=== PATIENT | female | born 1980 | race Caucasian/White ===

== ENCOUNTER 2018-12-11 06:56 | Outpatient (CLI) | payer OTHER ==
--- NOTE | 2018-12-11 08:45 | ULT ---
GALLBLADDER ULTRASOUND: INDICATIONS: Elevated liver enzymes. FINDINGS: Images of the gallbladder reveal numerous echogenic gallstones with posterior shadowing. The gallbla dder wall is poorly evaluated due to the contracted gallbladder filled with stones. I cannot exclude mild gallbladder wall thickening. The technologist describes a negative Kowalski sign. The common bile duct is normal in caliber, measured at 3 to 4 mm. The liver is mildly prominent in size, measuring up to 21 cm. Mild increased echogenicity may repres ent mild fatty infiltration. The pancreas is partially imaged and appears unremarkable. The right kidney is imaged. There is a 1 cm cyst, inferior pole, right kidney. IMPRESSION: 1. Cholelithiasis. 2. Mild hepatomegaly with evidence of hepatic steatosis. POS: H
== END 2018-12-11 06:57 | disposition home or self-care (01) ==
LOC: BICULT 06:56
PROVIDERS: ATTEND Family Medicine
DX: R74.8 Abnormal levels of other serum enzymes (principal); K80.20 Calculus of gallbladder without cholecystitis without obstruction; R16.0 Hepatomegaly, not elsewhere classified; K76.0 Fatty (change of) liver, not elsewhere classified
CPT/HCPCS: 76705

== ENCOUNTER 2019-02-02 08:08 | Outpatient (CLI) | payer OTHER ==
[2019-02-02 10:21] LABS: #Basophils 0.1 thou/uL (0.0-0.2); #Eosinphils 0.3 thou/uL (0.0-0.7); #Lymphocytes 1.8 thou/uL (1.20-3.40); #Monocytes 0.4 thou/uL (0.11-0.59); #Neutrophils 5.2 thou/uL (1.40-6.50); %Basophils 0.9 % (0.0-1.0); %Eosinophils 3.3 % (0.0-10.0); %Lymphocytes 23.6 % (21.0-51.0); %Monocytes 4.7 % (0.0-10.0); %Neutrophils 67.5 % (42.0-75.0); Mean Corpuscular HGB CONC 33.8 g/dL (32.0-36.0); Mean Corpuscular Hemoglobin 29.3 pg (27.0-31.0); Mean Corpuscular Volume 86.6 fL (78.0-98.0); Mean Platelet Volume 7.4 fL (7.4-10.4); Platelet Count 302 thou/uL (130-400); RBC Distribution Width 11.4 % (11.5-14.5); Red Blood Cell (RBC) Count 4.45 mill/uL (4.20-5.40); White Blood Cell (WBC) Count 7.7 thou/uL (4.8-10.8)
[2019-02-02 10:29] LABS: BHCG - Serum Negative (NEGATIVE); Pregs Control Background? CLEAR/WHITE (CLR/WHITE); Pregs Control Bar Appear? YES (CONTROL BAR)
[2019-02-02 10:45] LABS: ALT (SGPT) 56 U/L (8-55); AST (SGOT) 27 U/L (5-34); Albumin 4.4 g/dL (3.5-5.0); Alkaline Phosphatase 74 U/L (40-150); Anion Gap 9 mmol/L (10-20); BUN (Urea Nitrogen) 19 mg/dL (7.0-18.7); Bilirubin, Direct 0.2 mg/dL (0.1-0.3); Bilirubin, Total 0.4 mg/dL (0.2-1.2); Calc. Creatinine Clearance 0 mL/min (70-130); Calcium 9.4 mg/dL (7.8-10.44); Carbon Dioxide 27 mmol/L (22-29); Chloride 104 mmol/L (98-107); Estimated GFR-MDRD 78; Glucose 262 mg/dL (70-105); Potassium 4.3 mmol/L (3.5-5.1); Protein, Total 7.7 g/dL (6.0-8.3); Sodium 136 mmol/L (136-145)
== END 2019-02-02 08:09 | disposition home or self-care (01) ==
LOC: LABBT 08:08
PROVIDERS: ATTEND Surgery
DX: Z01.812 Encounter for preprocedural laboratory examination (principal); K80.80 Other cholelithiasis without obstruction
CPT/HCPCS: 80048; 80076; 84703; 85025

== ENCOUNTER 2019-02-08 05:46 | Day surgery (SDC) | payer OTHER ==
[2019-02-02 08:20] VITALS: BMI 31.8
[2019-02-08] MEDS ORDERED: Bupivacaine/Epinephrine 0.25% 30 ML VIAL ONE (06:50)
[2019-02-08] MEDS ORDERED: Bupivacaine HCl 0.5%/Epinephrine 1:200,000/PF 30 ml Vial ONE (06:50)
[2019-02-08] MEDS ORDERED: Midazolam HCl 2 mg/2 ml Vial ONE (07:00)
[2019-02-08] MEDS ORDERED: Fentanyl 100 MCG/2 ML VIAL ONE ×2 (07:00→08:37)
[2019-02-08] MEDS ORDERED: Iothalamate Meglumine 60% 50 ML VIAL FS ONE (07:40)
--- NOTE | 2019-02-08 08:21 | RAD ---
Operative cholangiogram: Single image presented from OR INDICATIONS: Intraoperative imaging during cholecystectomy procedure. IMPRESSION: Common duct is opacified. Spill into the duodenum is noted. No filling defect identified.
[2019-02-08] MEDS ORDERED: Ondansetron HCl/PF 4 MG/2 ML Vial IVP PRN (08:49)
[2019-02-08] MEDS ORDERED: Promethazine HCl 25 MG/ML VIAL IM/IV PRN (08:49)
[2019-02-08] MEDS ORDERED: HYDROcodone/Acetaminophen 5/325 mg Tablet PO PRN ×2 (08:50)
[2019-02-08] MEDS ORDERED: Non-Formulary Medication 1 EACH PO PRN (08:51)
--- NOTE | 2019-02-08 09:33 | OP ---
DATE OF PROCEDURE: 02/08/2019 PREOPERATIVE DIAGNOSES: 1. Symptomatic gallstones. 2. Elevated liver function test. POSTOPERATIVE DIAGNOSES: 1. Symptomatic gallstones. 2. Elevated liver function test. PROCEDURES PERFORMED: 1. Laparoscopic cholecystectomy with intraoperative cholangiogram. 2. Percutaneous liver biopsy under laparoscopic guidance. ANESTHESIA: General. ESTIMATED BLOOD LOSS: Minimal. COMPLICATIONS: None. SPECIMEN: Gallbladder. FINDINGS: Chronic cholecystitis. Normal cholangiogram. SPECIMEN: Gallbladder and core liver biopsy x3. DESCRIPTION OF PROCEDURE: The patient was taken to the operating room and laid supine on operating room table. After general anesthetic was obtained, the abdomen was prepped and draped in a sterile fashion. A curved incision was made below the umbilicus. Cautery was dissected down to and score the fascia. Abdominal cavity was entered bluntly using a Radha clamp. Holding stitch of Maxon was placed on each side of the fascia. Ady trocar was placed. High-flow pneumoperitoneum was obtained. Upper midline 5 mm port and two right upper quadrant 5 mm ports were placed under direct visualization. The gallbladder was retracted from the gallbladder fossa. The peritoneum was opened anteriorly and posteriorly. The critical view triangle was seen showing only the cystic duct and cystic artery branching from medial to lateral. There were no other branching structures. A clip was placed on the cystic duct. A small ductotomy was made just proximal to that. A cholangiocatheter was brought in through a separate stab incision, placed in the cystic duct and a cholangiogram was performed, which shows good contrast flow into the duodenum without obstruction. Cholangiocatheter was removed and 2 clips were placed proximally on the cystic duct. It was cut using laparoscopic scissors. Cystic artery was taken using 2 clips proximally, 1 clip distally cut using laparoscopic scissors. Cautery was dissected off and the gallbladder was retracted from the gallbladder fossa. Gallbladder was placed in an Endo Catch bag and brought out through the Ady. Three-quarter liver biopsies were performed using the cord needle gun. Cautery was used to control bleeding at the biopsy site. There was no ongoing bleeding. No injury to any intraabdominal structures. All port sites were infiltrated using local anesthetic. All ports were removed under camera visualization. Pneumoperitoneum was let down. The Maxon was used to close the fascial defect below the umbilicus. All incisions were irrigated and closed using 4-0 Monocryl and Dermabond. The patient was sent to Recovery in stable condition. All instrument counts, needle counts, and lap counts were correct. Job ID: [id number]
[2019-02-08] MEDS ORDERED: Glycopyrrolate 0.2 MG/ML 5 ML SYRINGE ONE (15:23)
[2019-02-08] MEDS ORDERED: Ondansetron PF 4 MG/2 ML Vial ONE (15:23)
[2019-02-08] MEDS ORDERED: Rocuronium Bromide 10 MG/ML (10ML VIAL) ONE (15:23)
[2019-02-08] MEDS ORDERED: Dexamethasone 20 MG/5 ML VIAL ONE (15:23)
[2019-02-08] MEDS ORDERED: PROPOFOL 200 MG/20 ML VIAL ONE (15:23)
== END 2019-02-08 10:25 | disposition home or self-care (01) ==
LOC: SDC 05:46
PROVIDERS: ATTEND Surgery
PROC: 0FT44ZZ Resection of Gallbladder, Percutaneous Endoscopic Approach (ICD-10-PCS; principal; 2019-02-08)
PROC: BF121ZZ Fluoroscopy of Gallbladder using Low Osmolar Contrast (ICD-10-PCS; principal; 2019-02-08)
PROC: 0FB04ZX Excision of Liver, Percutaneous Endoscopic Approach, Diagnostic (ICD-10-PCS; principal; 2019-02-08)
DX: K80.10 Calculus of gallbladder with chronic cholecystitis without obstruction (principal); K76.0 Fatty (change of) liver, not elsewhere classified; E11.9 Type 2 diabetes mellitus without complications; E66.9 Obesity, unspecified; Z68.31 Body mass index [BMI] 31.0-31.9, adult; Z79.84 Long term (current) use of oral hypoglycemic drugs
CPT/HCPCS: 47532; 88304; 88307; 88313; J0670; J0690; J1100; J2250; J2405; J2704; J3010; Q9961